=== PATIENT | female | born 2000 | race Caucasian/White ===

== ENCOUNTER 2021-01-28 12:17 | Emergency (ER) | payer BC ==
[~2021-01-28] VITALS: Ht 165.1 cm; Wt 61.2 kg
[2021-01-28 12:40] VITALS: BP 108/69
== END 2021-01-28 14:07 | disposition home or self-care (01) ==
LOC: ER 12:17 → EDBD 12:17 → ER 14:07
DX: M25.532 Pain in left wrist (principal); Z88.1 Allergy status to other antibiotic agents; Z88.0 Allergy status to penicillin